=== PATIENT | female | born 2005 | race African-American/Black ===

== ENCOUNTER 2025-05-20 02:33 | Emergency (ER) | payer MEDICAID ==
[~2025-05-20] VITALS: Ht 182.9 cm; Wt 66.6 kg
[~2025-05-20 02:33] MED LIST: CIPR-263 MT
[2025-05-20 02:46] VITALS: TEMP 36.7; O2SAT 98
[2025-05-20 03:07] LABS: BASOPHILS % 0.6 % (0.0-2.0); EOSINOPHILS % 0.6 % (0.0-5.0); HEMATOCRIT. 39.4 % (36.0-48.0); HEMOGLOBIN. 12.9 g/dL (12.0-16.0); LYMPHOCYTES % 25.9 % (20.0-50.0); MEAN PLATELET VOLUME 9.2 fl (7.4-10.4); MONOCYTES % 6.6 % (2.0-8.0); NEUTROPHILS % 66.3 % (40.0-76.0); PLATELET 236 x1000/uL (130-400); RED BLOOD CELL COUNT 4.21 mill/uL (4.2-5.4); RED CELL DISTRIBUTION WIDTH 14.8 % (11.6-14.6)
[2025-05-20 03:26] LABS: CREATININE 0.9 mg/dL (0.6-1.0); UREA NITROGEN BLOOD < 5 mg/dL (9-23)
[2025-05-20] MEDS: ACETAMINOPHEN 325MG TABLET PO ONE (03:36)
[2025-05-20] MEDS: ONDANSETRON 4MG ODT PO ONE (03:36)
[2025-05-20 03:43] LABS: HCG SCREEN NEGATIVE
[2025-05-20 03:46] LABS: ASPARTATE AMINOTRANSFERASE 18 IU/L (<34); BILIRUBIN DIRECT 0.2 mg/dL (<=3.0); BILIRUBIN TOTAL 1.0 mg/dL (0.1-1.0); PROTEIN TOTAL 8.2 g/dL (6.0-8.3)
[2025-05-20 04:27] LABS: CLARITY URINE CLEAR (CLEAR); COLOR URINE DARK YELLOW (YELLOW); GLUCOSE URINE NEGATIVE (NEGATIVE); KETONES URINE 3+ (NEGATIVE); LEUKOCYTE ESTERASE URINE NEGATIVE (NEGATIVE); NITRITE URINE NEGATIVE (NEGATIVE); OCCULT BLOOD URINE NEGATIVE (NEGATIVE); PH URINE 5.5 (4.5-8.0); PROTEIN URINE TRACE (NEGATIVE); SPECIFIC GRAVITY URINE 1.028 (1.005-1.030); UROBILINOGEN URINE 1.0 E.U./dL (0.2-1.0)
[2025-05-20] MEDS ORDERED: ONDA4TAB50 MT (04:49)
[2025-05-20 05:27] VITALS: BP 144/65; PULSE 74; RESP 18; O2SAT 100
[2025-05-20 05:55] LABS: SQUAMOUS EPITHELIAL CELL URINE FEW /lpf (RARE/1+)
[2025-05-20 05:57] LABS: RBC URINE 0-2 /hpf (0-2)
[2025-05-20 05:58] LABS: BACTERIA URINE NONE SEEN
== END 2025-05-20 05:29 | disposition home or self-care (01) ==
LOC: ER 02:33
DX: R11.2 Nausea with vomiting, unspecified (principal); F12.90 Cannabis use, unspecified, uncomplicated; Z79.899 Other long term (current) drug therapy; Z88.0 Allergy status to penicillin
CPT/HCPCS: 99283; 80076; 80048; 81003; 81025; 84703; 83690; 85025; 36415; Q0162

== ENCOUNTER 2025-06-15 23:30 | Emergency (ER) | payer SELFPAY ==
[~2025-06-15] VITALS: Ht 175.3 cm; Wt 64.0 kg
[~2025-06-15 23:30] MED LIST changes: +ONDA4TAB50 MT
[2025-06-15 23:56] VITALS: O2SAT 98
[2025-06-16 00:01] VITALS: BP 139/79; PULSE 68; RESP 16; TEMP 36.9; O2SAT 98
[2025-06-16 00:30] LABS: BASOPHILS % 0.8 % (0.0-2.0); EOSINOPHILS % 4.0 % (0.0-5.0); HEMATOCRIT. 36.6 % (36.0-48.0); HEMOGLOBIN. 12.3 g/dL (12.0-16.0); LYMPHOCYTES % 51.7 % (20.0-50.0); MEAN PLATELET VOLUME 9.3 fl (7.4-10.4); MONOCYTES % 9.9 % (2.0-8.0); NEUTROPHILS % 33.6 % (40.0-76.0); PLATELET 222 x1000/uL (130-400); RED BLOOD CELL COUNT 3.92 mill/uL (4.2-5.4); RED CELL DISTRIBUTION WIDTH 15.9 % (11.6-14.6)
[2025-06-16 00:31] LABS: CLARITY URINE TURBID (CLEAR); COLOR URINE DARK YELLOW (YELLOW); GLUCOSE URINE NEGATIVE (NEGATIVE); KETONES URINE 1+ (NEGATIVE); LEUKOCYTE ESTERASE URINE 2+ (NEGATIVE); NITRITE URINE NEGATIVE (NEGATIVE); OCCULT BLOOD URINE NEGATIVE (NEGATIVE); PH URINE 7.0 (4.5-8.0); PROTEIN URINE 1+ (NEGATIVE); SPECIFIC GRAVITY URINE 1.034 (1.005-1.030); UROBILINOGEN URINE 1.0 E.U./dL (0.2-1.0)
[2025-06-16 00:35] LABS: CREATININE 0.9 mg/dL (0.6-1.0); UREA NITROGEN BLOOD < 5 mg/dL (9-23)
[2025-06-16] MEDS: ONDANSETRON 4MG ODT PO ONE (00:59)
[2025-06-16] MEDS ORDERED: CEPH500C2 MT (01:23)
[2025-06-16 02:36] LABS: HCG SCREEN NEGATIVE
[2025-06-16 03:11] LABS: SQUAMOUS EPITHELIAL CELL URINE 3+ /lpf (RARE/1+)
[2025-06-16 03:12] LABS: RBC URINE 0-2 /hpf (0-2)
[2025-06-16 03:13] LABS: BACTERIA URINE 2+
== END 2025-06-16 01:29 | disposition home or self-care (01) ==
LOC: ER 23:30
DX: R11.2 Nausea with vomiting, unspecified (principal); N39.0 Urinary tract infection, site not specified; E87.6 Hypokalemia; F12.90 Cannabis use, unspecified, uncomplicated; Z79.899 Other long term (current) drug therapy; Z88.0 Allergy status to penicillin
CPT/HCPCS: 99283; 80048; 81003; 81025; 84703; 85025; 36415; Q0162